=== PATIENT | male | born 1950 | race Caucasian/White ===

== ENCOUNTER → 2023-10-14 | Outpatient (CLI) | payer MEDICARE, BC ==
[~2023-10-14] MED LIST: ATEN50TA2; CITA20TA6; LEVO150T7; LEVO25TA5; LOSA50TA28
== END ==
LOC: M PLARAD 08:21
PROVIDERS: ATTEND Internal Medicine Hematology & Oncology
DX: C64.1 Malignant neoplasm of right kidney, except renal pelvis (principal)
CPT/HCPCS: 78815; A9552